=== PATIENT | female | born 1980 | race Caucasian/White ===

== ENCOUNTER 2017-03-21 00:08 | Inpatient (IN) | payer OTHER ==
[~2017-03-21] VITALS: Ht 165.1 cm; Wt 130.0 kg
[2017-03-21] MEDS ORDERED: PRENATAL VITAM1 EAC7 PO (01:57)
[2017-03-21] MEDS ORDERED: LEVOXYL50 MCG PO (23:28)
--- NOTE | 2017-03-23 11:59 | PR ---
[facility] [address] [facility] [place], [place] [address] Signed PP Progress Notes Datetime Report Generated by CPN: 03/23/2017 11:59 SUBJECTIVE: [id number] Pain: Within normal limits Nausea/Vomiting: Denies Vital Signs: [id number] Vital Signs: Reviewed Notable Details: mild HTN EXAM: [id number] Cardiovascular: Not Done Respiratory: Not Done Abdomen/Uterus: Abnormal Lochia: Normal Vulva/Perineum: Not Done Breasts: Not Done CVA Tenderness: Not Done Extremities: Abnormal Incision: Not Applicable Progress: Abnormal Exam Comments: Fundus firm, NT @ U. Ext with 1+ edema, nontender IMPRESSION/PLAN/PROCEDURES: [id number] Impression: Normal progression Plan: Discharge Procedures: None Progress Notes: Doing well though she is continuing to have issues with breast feeding. Signing Physician: Aarti Alejandra MD CC: *Electronically Signed* 03/23/17 1159 AARTI ALEJANDRA MD PATIENT NAME: FELICITA YANG PROGRESS NOTE DATE OF : 84 PHYSICIAN: AARTI ALEJANDRA MD RPT #: [id number] REPORT IS CONFIDENTIAL AND NOT TO BE RELEASED WITHOUT AUTHORIZATION
== END 2017-03-23 13:25 | disposition home or self-care (01) | DRG 775 ==
LOC: FBC 00:08
PROVIDERS: ADMIT Obstetrics & Gynecology
PROC: 10D07Z6 Extraction of Products of Conception, Vacuum, Via Natural or Artificial Opening (ICD-10-PCS; principal; 2017-03-21)
PROC: 0W8NXZZ Division of Female Perineum, External Approach (ICD-10-PCS; 2017-03-21)
PROC: 00HU33Z Insertion of Infusion Device into Spinal Canal, Percutaneous Approach (ICD-10-PCS; 2017-03-21)
PROC: 3E0R3BZ Introduction of Anesthetic Agent into Spinal Canal, Percutaneous Approach (ICD-10-PCS; 2017-03-21)
PROC: 10907ZC Drainage of Amniotic Fluid, Therapeutic from Products of Conception, Via Natural or Artificial Opening (ICD-10-PCS; 2017-03-21)
DX: O14.94 Unspecified pre-eclampsia, complicating childbirth (principal); Z3A.37 37 weeks gestation of pregnancy; Z37.0 Single live birth; O69.1XX0 Labor and delivery complicated by cord around neck, with compression, not applicable or unspecified; O43.113 Circumvallate placenta, third trimester
CPT/HCPCS: 01960; 36415; 82565; 82803; 84450; 84520; 84550; 85025; 85027; J1644; J2590; J2795; J2997; J7120